=== PATIENT | female | born 2000 | race Caucasian/White ===

== ENCOUNTER 2020-11-10 14:29 | Emergency (ER) | payer BC ==
[~2020-11-10] VITALS: Ht 160 cm; Wt 55.9 kg
[2020-11-10 15:02] LABS: BASOPHILS # (AUTO) 0.1 X10'3 (0-0.2); BASOPHILS % (AUTO) 0.7 % (0-1); EOSINOPHILS # (AUTO) 0.1 X10'3 (0-0.9); EOSINOPHILS % (AUTO) 0.7 % (0-6); HEMOGLOBIN 14.9 g/dl (12.0-16.0); LYMPHOCYTES # (AUTO) 2.1 X10'3 (1.1-4.8); LYMPHOCYTES % (AUTO) 24.5 % (21-51); MEAN CORPUSCULAR HEMOGLOBIN 30.2 PG (27.0-31.0); MEAN CORPUSCULAR HGB CONC 33.9 g/dL (33.0-36.5); MEAN PLATELET VOLUME 9.2 FL (7.4-10.4); MONOCYTES # (AUTO) 0.9 X10'3 (0-0.9); MONOCYTES % (AUTO) 10.2 % (2-12); NEUTROPHILS # (AUTO) 5.5 X10'3 (1.8-7.7); NEUTROPHILS % (AUTO) 63.9 % (42-75); PLATELET COUNT 368 X10'3 (140-440); RED BLOOD COUNT 4.94 X10'6 (4.20-5.60); RED CELL DISTRIBUTION WIDTH 12.4 % (11.5-14.5); WHITE BLOOD COUNT 8.5 X10'3 (4.5-11.0)
[2020-11-10 15:18] LABS: ALANINE AMINOTRANSFERASE 37 U/L (12-78); ALBUMIN 4.6 G/DL (3.4-5.0); ALKALINE PHOSPHATASE 67 IU/L (46-116); ANION GAP 13 (8-16); ASPARTATE AMINO TRANSFERASE 17 U/L (10-37); BILIRUBIN,TOTAL 1.3 MG/DL (0.1-1.0); BLOOD UREA NITROGEN 13 MG/DL (7-18); BUN/CREATININE RATIO 14.4 (6.6-38.0); CALCIUM 9.9 MG/DL (8.5-10.1); CHLORIDE 98 MMOL/L (99-107); GLUCOSE 109 MG/DL (70-104); LIPASE 92 U/L (73-393); SODIUM 138 MMOL/L (135-145); TOTAL CARBON DIOXIDE 26.6 MMOL/L (24-32); TOTAL PROTEIN 9.1 G/DL (6.4-8.2); eGFR 78 ML/MIN
[2020-11-10] MEDS ORDERED: haloperidol lactate 5mg/ml inj IM ONE (15:25)
[2020-11-10] MEDS ORDERED: LORazepam 2 mg/ml vial IV ONE (15:25)
[2020-11-10] MEDS ORDERED: normal saline 1000ML IV soln IV ONE (15:25)
[2020-11-10 15:28] LABS: POTASSIUM 2.9 MMOL/L (3.5-5.1)
[2020-11-10] MEDS ORDERED: potassium Cl 20 mEq SR tablet PO STA (15:34)
[2020-11-10] MEDS ORDERED: magnesium 2GM in 50ml NS 50 ML IV ONE (15:35)
[2020-11-10] MEDS ORDERED: potassium Cl 10 mEq/100mL bag IV ONE (15:35)
[2020-11-10 16:05] LABS: MAGNESIUM 2.3 MG/DL (1.5-2.4)
[2020-11-10 16:16] LABS: URINE HCG NEGATIVE (NEG)
[2020-11-10 16:19] LABS: CLARITY,URINE CLOUDY (Clear); COLOR,URINE YELLOW (Yellow); GLUCOSE, URINE NEGATIVE (Neg); KETONES,URINE >=80 mg/dl (Neg); LEUKOCYTE ESTERASE ,URINE NEGATIVE (Neg); NITRITES, URINE NEGATIVE (Neg); OCCULT BLOOD,URINE MODERATE (Neg); PROTEIN,URINE 30 mg/dl (Neg)
[2020-11-10 16:21] LABS: UA COLLECTION TYPE CLN CATCH MIDSTREAM
[2020-11-10 16:27] LABS: MUCUS STRANDS MANY /LPF (Neg); SQUAMOUS EPITHELIAL CELL,UR MANY /LPF (FEW)
[2020-11-10 16:28] LABS: BACTERIA,URINE 2+ /HPF (Neg); WBC,URINE 0-4 /HPF (0-4)
[2020-11-10] MEDS ORDERED: ONDA4TAB6 PO (16:37)
[2020-11-10 18:00] VITALS: BP 112/67
== END 2020-11-10 17:59 | disposition home or self-care (01) ==
LOC: ER 14:30
DX: F12.188 Cannabis abuse with other cannabis-induced disorder (principal); K59.00 Constipation, unspecified; R10.84 Generalized abdominal pain; Z79.899 Other long term (current) drug therapy
CPT/HCPCS: 36415; 80053; 81001; 81025; 83690; 83735; 85025; 93005; 96365; 96372; 96375; 99284; J1630; J2060; J3475; J3480; J7030; 96361

== ENCOUNTER 2020-11-19 12:50 | Emergency (ER) | payer BC ==
[~2020-11-19] VITALS: Ht 160 cm; Wt 52.8 kg
[~2020-11-19 12:50] MED LIST: ONDA4TAB6 PO
[2020-11-19] MEDS ORDERED: ondansetron/PF 4mg/2ml inj IV ONE (15:40)
[2020-11-19] MEDS ORDERED: normal saline 1000ml 1,000 ML IV ONE (15:40)
[2020-11-19] MEDS ORDERED: morphine 4 MG/ML inj SYRINge IM ONE (16:15)
[2020-11-19] MEDS ORDERED: ondansetron/PF 4mg/2ml inj IM ONE (16:15)
[2020-11-19 16:23] LABS: BASOPHILS # (AUTO) 0.1 X10'3 (0-0.2); BASOPHILS % (AUTO) 1.3 % (0-1); EOSINOPHILS # (AUTO) 0.1 X10'3 (0-0.9); EOSINOPHILS % (AUTO) 0.8 % (0-6); HEMATOCRIT 47.5 % (35.0-45.0); HEMOGLOBIN 16.1 g/dl (12.0-16.0); LYMPHOCYTES # (AUTO) 2.4 X10'3 (1.1-4.8); LYMPHOCYTES % (AUTO) 27.6 % (21-51); MEAN CORPUSCULAR HEMOGLOBIN 29.9 PG (27.0-31.0); MEAN CORPUSCULAR HGB CONC 33.8 g/dL (33.0-36.5); MEAN CORPUSCULAR VOLUME 88.4 FL (78-98); MONOCYTES % (AUTO) 11.4 % (2-12); NEUTROPHILS # (AUTO) 5.1 X10'3 (1.8-7.7); NEUTROPHILS % (AUTO) 58.9 % (42-75); PLATELET COUNT 307 X10'3 (140-440); RED BLOOD COUNT 5.37 X10'6 (4.20-5.60); RED CELL DISTRIBUTION WIDTH 12.3 % (11.5-14.5); WHITE BLOOD COUNT 8.7 X10'3 (4.5-11.0)
[2020-11-19 16:34] LABS: ALANINE AMINOTRANSFERASE 30 U/L (12-78); ALBUMIN 4.8 G/DL (3.4-5.0); ALBUMIN/GLOBULIN RATIO 1.1 (1.1-1.5); ALKALINE PHOSPHATASE 61 IU/L (46-116); ANION GAP 18 (8-16); ASPARTATE AMINO TRANSFERASE 17 U/L (10-37); BILIRUBIN,TOTAL 1.3 MG/DL (0.1-1.0); BLOOD UREA NITROGEN 14 MG/DL (7-18); BUN/CREATININE RATIO 17.1 (6.6-38.0); CALCIUM 10.1 MG/DL (8.5-10.1); CHLORIDE 92 MMOL/L (99-107); CREATININE 0.82 MG/DL (0.40-0.90); GLUCOSE 78 MG/DL (70-104); LIPASE 121 U/L (73-393); SODIUM 135 MMOL/L (135-145); TOTAL CARBON DIOXIDE 25.1 MMOL/L (24-32); TOTAL PROTEIN 9.2 G/DL (6.4-8.2); eGFR 87 ML/MIN
[2020-11-19] MEDS ORDERED: potassium Cl 20 mEq SR tablet PO ONE (16:50)
[2020-11-19] MEDS ORDERED: potassium Cl 10 mEq/100mL bag IV ONE (16:50)
[2020-11-19] MEDS ORDERED: FAMO-128 PO (18:07)
[2020-11-19] MEDS ORDERED: PROC25SU31 RC (18:07)
[2020-11-19] MEDS ORDERED: ONDA4TAB6 PO (18:07)
[2020-11-19 18:19] LABS: CLARITY,URINE CLOUDY (Clear); COLOR,URINE YELLOW (Yellow); GLUCOSE, URINE NEGATIVE (Neg); KETONES,URINE >=80 mg/dl (Neg); LEUKOCYTE ESTERASE ,URINE NEGATIVE (Neg); NITRITES, URINE NEGATIVE (Neg); OCCULT BLOOD,URINE MODERATE (Neg); PH,URINE 5.5 (4.8-8.0); PROTEIN,URINE NEGATIVE (Neg); UROBILINOGEN,URINE 0.2 E.U/dL (0.2-1.0)
[2020-11-19 18:22] LABS: UA COLLECTION TYPE CLN CATCH MIDSTREAM; URINE HCG NEGATIVE (NEG)
[2020-11-19 18:30] LABS: HCG SERUM QL NEGATIVE
[2020-11-19 18:31] LABS: BACTERIA,URINE 2+ /HPF (Neg); SQUAMOUS EPITHELIAL CELL,UR MANY /LPF (FEW)
[2020-11-19 18:32] LABS: WBC,URINE 0-4 /HPF (0-4)
[2020-11-19 19:03] VITALS: BP 116/75
[2020-11-20] MEDS ORDERED: pantoprazole 40mg Tablet.DR PO SCH (07:30)
== END 2020-11-19 19:10 | disposition home or self-care (01) ==
LOC: ER 12:50
DX: R11.2 Nausea with vomiting, unspecified (principal); E87.6 Hypokalemia; Z79.899 Other long term (current) drug therapy
CPT/HCPCS: 36415; 80053; 81001; 81025; 83690; 84703; 85025; 96361; 96372; 96374; 96375; 99284; J2405; J3480; J7030

== ENCOUNTER 2021-02-08 18:40 | Emergency (ER) | payer BC, OTHER ==
[~2021-02-08] VITALS: Ht 160 cm; Wt 57.7 kg
[~2021-02-08 18:40] MED LIST changes: +FAMO-128 PO
[2021-02-08 19:30] LABS: BASOPHILS # (AUTO) 0.1 X10'3 (0-0.2); BASOPHILS % (AUTO) 0.5 % (0-1); EOSINOPHILS % (AUTO) 0.1 % (0-6); HEMOGLOBIN 13.8 g/dl (12.0-16.0); LYMPHOCYTES % (AUTO) 16.1 % (21-51); MEAN CORPUSCULAR HEMOGLOBIN 30.5 PG (27.0-31.0); MEAN CORPUSCULAR HGB CONC 33.6 g/dL (33.0-36.5); MEAN PLATELET VOLUME 8.7 FL (7.4-10.4); MONOCYTES # (AUTO) 0.8 X10'3 (0-0.9); MONOCYTES % (AUTO) 6.8 % (2-12); NEUTROPHILS # (AUTO) 9.4 X10'3 (1.8-7.7); NEUTROPHILS % (AUTO) 76.5 % (42-75); PLATELET COUNT 365 X10'3 (140-440); RED BLOOD COUNT 4.51 X10'6 (4.20-5.60); RED CELL DISTRIBUTION WIDTH 12.5 % (11.5-14.5); WHITE BLOOD COUNT 12.3 X10'3 (4.5-11.0)
[2021-02-08 19:35] LABS: ALANINE AMINOTRANSFERASE 29 U/L (12-78); ALBUMIN 4.4 G/DL (3.4-5.0); ALKALINE PHOSPHATASE 62 IU/L (46-116); ANION GAP 13 (8-16); ASPARTATE AMINO TRANSFERASE 16 U/L (10-37); BILIRUBIN,TOTAL 1.1 MG/DL (0.1-1.0); BLOOD UREA NITROGEN 19 MG/DL (7-18); BUN/CREATININE RATIO 19.6 (6.6-38.0); CALCIUM 9.3 MG/DL (8.5-10.1); CHLORIDE 100 MMOL/L (99-107); CREATININE 0.97 MG/DL (0.40-0.90); GLUCOSE 93 MG/DL (70-104); LIPASE < 50 U/L (73-393); POTASSIUM 3.3 MMOL/L (3.5-5.1); SODIUM 138 MMOL/L (135-145); TOTAL CARBON DIOXIDE 25.1 MMOL/L (24-32); TOTAL PROTEIN 8.8 G/DL (6.4-8.2); eGFR 72 ML/MIN
--- NOTE | 2021-02-08 19:36 | NUR ---
Patient provided with urine specimen cup- instructed for collection of urine specimen. Encouraged to remain NPO while waiting to be seen by provider.
--- NOTE | 2021-02-08 19:54 | NUR ---
ED provider at bedside for patient assessment and discussion of plan of care.
[2021-02-08] MEDS ORDERED: ondansetron/PF 4mg/2ml inj IV ONE (20:00)
[2021-02-08] MEDS ORDERED: normal saline 1000ML IV soln IVB ONE (20:00)
[2021-02-08] MEDS ORDERED: ONDA4TAB6 PO (20:02)
[2021-02-08 20:23] LABS: URINE HCG NEGATIVE (NEG)
[2021-02-08 20:27] LABS: CLARITY,URINE CLEAR (Clear); GLUCOSE, URINE NEGATIVE (Neg); KETONES,URINE >=80 mg/dl (Neg); LEUKOCYTE ESTERASE ,URINE NEGATIVE (Neg); NITRITES, URINE NEGATIVE (Neg); OCCULT BLOOD,URINE MODERATE (Neg); PROTEIN,URINE 30 mg/dl (Neg); UROBILINOGEN,URINE 0.2 E.U/dL (0.2-1.0)
[2021-02-08 20:33] LABS: UA COLLECTION TYPE NON-SPECIFIED
[2021-02-08 20:34] LABS: COLOR,URINE DARK YELLOW (Yellow)
[2021-02-08 20:35] LABS: BACTERIA,URINE FEW /HPF (Neg); HYALINE CASTS 0-3 /LPF (NEGATIVE); MUCUS STRANDS FEW /LPF (Neg); SQUAMOUS EPITHELIAL CELL,UR MODERATE /LPF (FEW); WBC,URINE 0-4 /HPF (0-4)
[2021-02-08 21:11] VITALS: BP 95/47
== END 2021-02-08 21:19 | disposition home or self-care (01) ==
LOC: ER 18:41
DX: R11.2 Nausea with vomiting, unspecified (principal); R10.84 Generalized abdominal pain; F41.9 Anxiety disorder, unspecified; Z79.899 Other long term (current) drug therapy
CPT/HCPCS: 36415; 80053; 81001; 81025; 83690; 85025; 96361; 96374; 99284; J2405; J7030

== ENCOUNTER 2025-03-09 12:53 | Emergency (ER) | payer SELFPAY ==
[~2025-03-09] VITALS: Ht 157.5 cm; Wt 60.5 kg
--- NOTE | 2025-03-09 14:08 | Physician Documentation ---
History of Present Illness ~ Chief Complaint: Vomiting Stated Complaint: "I HAVE BEEN THROWING UP FOR THE PAST 3 DAYS" Time Seen by MD: 14:02 Primary Medical Doctor: none HPI 24-year-old female daily THC smoker has been experiencing nausea vomiting and abdominal cramping she states that hot showers and bath does alleviate her symptoms. Patient is on her menstrual cycle now. No significant medical history Medication Reconciliation Allergies: Coded Allergies: No Known Allergies (Unverified , 11/10/20) Scheduled Famotidine (Pepcid), 1 TAB PO Q12H Ondansetron Hcl (Zofran), 1 TAB PO Q6H Ondansetron Hcl (Zofran), 1 TAB PO Q6H Ondansetron Hcl (Zofran), 4 MG PO Q6H Past Medical History Past Medical History: No Pertinent History Past Surgical History: no surgical history Lives In: Home Review of Systems All Other Systems at this time: Reviewed and Negative Genitourinary: Reports: see HPI Physical Exam Vital Signs: RN Vital Signs have been reviewed: Yes, Temperature: 98.3, Source: Temporal, Heart Rate: 63, Respiratory Rate: 18, BP: 127/79, Pulse Oximetry: 98, Weight: 60.500 Oxygen Flow Rate: 0 General Appearance: alert, WD/WN, no apparent distress EENT: dry mucous membranes Neck: normal inspection Respiratory: lungs clear, normal breath sounds, no respiratory distress Chest: no accessory muscle use Cardiology Exam: regular rate, rhythm Gastrointestinal Mild generalized tenderness no focal tenderness bowel sounds present Neurologic: oriented x4 Psychiatric: normal mood/affect Skin: normal color, warm/dry Progress Results/Orders Results/Orders Orders - DEE DEE GLORIA [employer]ERM[employer] Po Challenge (03/09/25 ) Completed Orders - DEE DEE GLORIA [employer] Ondansetron Inj. (Zofran 4mg/2ml Vial) (03/09/25 14:30) Famotidine/Pf Iv Inj (Pepcid Iv Inj) (03/09/25 14:30) Normal Saline 1000ml (0.9% Sodium Chlori (03/09/25 14:30) Medications Received in ER Medications (Trade) Dose Ordered Sig/Gold Route PRN Reason Start Time Stop Time Status Last Admin Dose Admin (Zofran 4mg/2ml vial) 4 mg ONCE ONCE IV 03/09/25 14:30 03/09/25 14:31 DC 03/09/25 15:03 4 MG (Pepcid IV inj) 20 mg ONCE ONCE IV 03/09/25 14:30 03/09/25 14:31 DC 03/09/25 15:03 20 MG (0.9% sodium chloride (NS) 1000ml IV soln) 1,000 ml ONCE ONCE IVB 03/09/25 14:30 03/09/25 14:31 DC 03/09/25 15:03 1,000 ML Vital Signs 03/09/25 13:16 Temp 98.3 Pulse 63 Resp 18 B/P (MAP) 127/79 Pulse Ox 98 O2 Flow Rate 0 Laboratory Tests Test 03/09/25 13:56 White Blood Count 14.1 H Red Blood Count 4.73 Hemoglobin 14.3 Hematocrit 42.7 Mean Corpuscular Volume 90.3 Mean Corpuscular Hemoglobin 30.3 Mean Corpuscular Hemoglobin Concent 33.6 Red Cell Distribution Width 13.1 Platelet Count 378 Mean Platelet Volume 8.3 Neutrophils (%) (Auto) 71.3 Lymphocytes (%) (Auto) 18.2 L Monocytes (%) (Auto) 10.0 Eosinophils (%) (Auto) 0.2 Basophils (%) (Auto) 0.3 Neutrophils # (Auto) 10.1 H Lymphocytes # (Auto) 2.6 Monocytes # (Auto) 1.4 H Eosinophils # (Auto) 0.0 Basophils # (Auto) 0.0 CBC Comment Sodium Level 140 Potassium Level 3.5 Chloride Level 99 Carbon Dioxide Level 32.7 H Anion Gap 8 Blood Urea Nitrogen 23 H Creatinine 1.11 H Estimated GFR/1.73 m2 59 BUN/Creatinine Ratio 20.7 H Glucose Level 119 H Calcium Level 9.9 Total Bilirubin 1.0 Aspartate Amino Transf (AST/SGOT) 20 Alanine Aminotransferase (ALT/SGPT) 37 Alkaline Phosphatase 70 Total Protein 9.4 H Albumin 4.8 Globulin 4.6 H Albumin/Globulin Ratio 1.0 L Lipase 17 Chemistry Comments Medical Decision Making Findings 24-year-old daily THC user with cyclic vomiting for over 24 hours. Patient can hold some water down but has had difficulty overnight. No blood in her vomit no diarrhea or constipation. Patient states she does get relief in a hot shower. Generalized abdominal pain. Labs reviewed. IV fluids Pepcid and Zofran given with positive response p.o. challenge prior to discharge instructed on reduce/stop THC Diff Dx N/V/D:Considerations: Include: Appendicitis, Bowel obstruction, Dehydration, Electrolyte imbalance, Food poisoning, Gastroenteritis, Hypovolemia, Malnutrition, Other Departure Time of Disposition: 16:09 Disposition: 01 HOME / SELF CARE / HOMELESS Impression: Primary Impression: Cannabis hyperemesis syndrome concurrent with and due to cannabis abuse Additional Impression: Cyclic vomiting syndrome Condition: Stable Discharge Instructions: Nausea and Vomiting, Adult Additional Instructions: Medications as prescribed try to abstain from THC use to help reduce hyperemesis. Focus on staying well hydrated follow up with primary care Referrals: NO PRIMARY CARE PROVIDER (PCP) Prescriptions Capsaicin 60GM Cream* (Zostrix Cream*) 60 Gm Cream.gm. 1 APPLIC TOP Q12H for 30 Days, #60 GM Prov: DEE DEE GLORIA NP 03/09/25 Prochlorperazine Maleate (Compazine) 10 Mg Tablet 1 TAB PO Q6H for 7 Days, #28 TAB 0 Refills Prov: DEE DEE GLORIA NP 03/09/25 ONDANSETRON ODT 4mg tablet (ONDANSETRON ODT) 4 Mg Tab.rapdis 1 TABLET PO Q6H PRN for nausea/vomiting, #16 TABLET Prov: DEE DEE GLORIA NP 03/09/25 Education Educated: Patient Educated regarding: diagnosis, treatment, need for follow up Signature Scribe Signature: No scribe Attestation: The note accurately reflects work and decisions made by me.Dee Dee FRYE 03/09/25 14:08 DEE DEE GLORIA NP Mar 09, 2025 14:08
[2025-03-09 14:10] LABS: MEAN PLATELET VOLUME 8.3 FL (7.4-10.4); RED CELL DISTRIBUTION WIDTH 13.1 % (11.5-14.5)
[2025-03-09 14:27] LABS: CREATININE 1.11 MG/DL (0.40-0.90); TOTAL CARBON DIOXIDE 32.7 MMOL/L (24-32); eCRCL 61 ML/MIN; eGFR 59 ML/MIN
[2025-03-09] MEDS: normal saline 1000ML IV soln IVB ONE (15:03)
[2025-03-09] MEDS: ondansetron/PF 4mg/2ml inj IV ONE (15:03)
[2025-03-09] MEDS: famotidine/PF 10 mg/ml inj IV ONE (15:03)
[2025-03-09] MEDS ORDERED: PROC-8 PO (16:09)
[2025-03-09] MEDS ORDERED: ONDA-243 PO (16:09)
[2025-03-09] MEDS ORDERED: CAPS60CR6 TOP (16:09)
[2025-03-09 17:12] VITALS: BP 117/72; PULSE 71; RESP 16; TEMP 98.3; O2SAT 98
== END 2025-03-09 17:13 | disposition home or self-care (01) ==
LOC: ER 12:53
DX: F12.10 Cannabis abuse, uncomplicated (principal); R11.15 Cyclical vomiting syndrome unrelated to migraine; R10.9 Unspecified abdominal pain
CPT/HCPCS: 36415; 80053; 83690; 85025; 96361; 96374; 96375; 99284; J2405; J3490; J7030

== ENCOUNTER 2025-03-18 07:04 | Emergency (ER) | payer SELFPAY ==
[~2025-03-18] VITALS: Ht 157.5 cm; Wt 59.4 kg
[~2025-03-18 07:04] MED LIST changes: +CAPS60CR6 TOP; +ONDA-243 PO; +PROC-8 PO
[2025-03-18 07:53] LABS: MEAN PLATELET VOLUME 9.3 FL (7.4-10.4); RED CELL DISTRIBUTION WIDTH 12.0 % (11.5-14.5)
[2025-03-18 07:55] LABS: LEUKOCYTE ESTERASE ,URINE NEGATIVE (Neg); NITRITES, URINE NEGATIVE (Neg); OCCULT BLOOD,URINE SMALL (Neg)
[2025-03-18 07:58] LABS: URINE HCG NEGATIVE (NEG)
[2025-03-18 08:00] LABS: UA COLLECTION TYPE CLN CATCH MIDSTREAM
[2025-03-18 08:01] LABS: AMORPHOUS PHOSPHATES 2+
[2025-03-18 08:02] LABS: MUCUS STRANDS NONE SEEN /LPF (Neg); SQUAMOUS EPITHELIAL CELL,UR MANY /LPF (FEW)
[2025-03-18 08:09] LABS: CREATININE 1.09 MG/DL (0.40-0.90); TOTAL CARBON DIOXIDE 31.1 MMOL/L (24-32); eCRCL 62 ML/MIN; eGFR 61 ML/MIN
[2025-03-18] MEDS: OLANZapine **IM** 10 mg inj. IM ONE (08:21)
--- NOTE | 2025-03-18 09:11 | Physician Documentation ---
History of Present Illness Chief Complaint: Abdominal Pain w/vomiting Stated Complaint: VOMITING Time Seen by MD: 07:37 Primary Medical Doctor: none Mode of Arrival: Ambulatory HPI h/o daily thc use p/w 2 weeks of vomiting. was seen here initially and has persistence of vomiting. relieved with hot showers. has refrained from thc use since then. mild cramping LUQ pain which has resolved. Medication Reconciliation Allergies: Coded Allergies: No Known Allergies (Unverified , 03/18/25) Scheduled Capsaicin 60GM Cream* (Zostrix Cream*), 1 APPLIC TOP Q12H Famotidine (Pepcid), 1 TAB PO Q12H Ondansetron Hcl (Zofran), 1 TAB PO Q6H Ondansetron Hcl (Zofran), 1 TAB PO Q6H Ondansetron Hcl (Zofran), 4 MG PO Q6H Prochlorperazine Maleate (Compazine), 1 TAB PO Q6H Scheduled PRN ONDANSETRON ODT 4mg tablet (Ondansetron Odt), 1 TABLET PO Q6H PRN for nausea/vomiting Past Medical History Past Medical History: No Pertinent History Past Surgical History: no surgical history Lives In: Home Review of Systems All Other Systems at this time: Reviewed and Negative Constitutional: Denies: fever Cardiovascular: Denies: chest pain Gastrointestinal: Reports: abdominal pain, nausea, vomiting; Denies: abdomen distended Physical Exam Vital Signs: Temperature: 98.4, Source: Temporal, Heart Rate: 82, Respiratory Rate: 24, BP: 123/81, Pulse Oximetry: 98, Weight: 59.400 Oxygen Flow Rate: 0 Physical Exam well appearing no distress moist mucous membranes pulm ctab cardiac no murmur abdomen soft non tender. awake alert oriented Progress Results/Orders Reviewed/noted all lab results: Yes Results/Orders Completed Orders - LIMA SCHNEIDER MD Hcg, Ur Ql (03/18/25 07:13) Cbc/Diff (03/18/25 07:13) Lipase (03/18/25 07:13) CMP (03/18/25 07:13) Ua W/Microscopic, Cult If Ind (03/18/25 07:30) Olanzapine Im (Zyprexa I.M. Im On (03/18/25 08:10) Pantoprazole 40mg Iv (Protonix 40mg Iv) (03/18/25 08:10) Medications Received in ER Medications (Trade) Dose Ordered Sig/Gold Route PRN Reason Start Time Stop Time Status Last Admin Dose Admin (ZyPREXA I.M. IM ONLY) 2.5 mg ONCE ONCE IM 03/18/25 08:10 03/18/25 08:11 DC 03/18/25 08:21 2.5 MG (Protonix 40mg IV) 40 mg ONCE ONCE IV 03/18/25 08:10 03/18/25 08:11 DC 03/18/25 08:24 40 MG Vital Signs 03/18/25 03/18/25 03/18/25 07:07 07:24 08:33 Temp 98.4 Pulse 97 82 Resp 18 24 B/P (MAP) 133/90 123/81 (95) Pulse Ox 97 98 O2 Flow Rate 0 0 Laboratory Tests Test 03/18/25 07:30 03/18/25 07:36 Urine Specimen Description Cln catch midstream Urine Color Yellow Urine Clarity Cloudy Urine pH 8.0 Urine Specific [place] 1.015 Urine Protein 30 H Urine Glucose (UA) Negative Urine Ketones Negative Urine Occult Blood Small Urine Nitrite Negative Urine Bilirubin Negative Urine Urobilinogen 1.0 Urine Leukocyte Esterase Negative Urine RBC 3-10 Urine WBC 0-4 Urine Squamous Epithelial Cells Many Urine Amorphous Phosphates 2+ Urine Bacteria 3+ Urine Mucus None seen Urine Culture Indicated Not ind Volume Urine Centrifuged 10 ml Urine HCG, Qualitative Negative Urine Comment White Blood Count 7.6 Red Blood Count 4.37 Hemoglobin 13.2 Hematocrit 39.2 Mean Corpuscular Volume 89.8 Mean Corpuscular Hemoglobin 30.2 Mean Corpuscular Hemoglobin Concent 33.7 Red Cell Distribution Width 12.0 Platelet Count 313 Mean Platelet Volume 9.3 Neutrophils (%) (Auto) 63.6 Lymphocytes (%) (Auto) 26.1 Monocytes (%) (Auto) 8.6 Eosinophils (%) (Auto) 0.9 Basophils (%) (Auto) 0.8 Neutrophils # (Auto) 4.8 Lymphocytes # (Auto) 2.0 Monocytes # (Auto) 0.6 Eosinophils # (Auto) 0.1 Basophils # (Auto) 0.1 CBC Comment Sodium Level 137 Potassium Level 3.1 L Chloride Level 97 L Carbon Dioxide Level 31.1 Anion Gap 9 Blood Urea Nitrogen 9 Creatinine 1.09 H Estimated GFR/1.73 m2 61 BUN/Creatinine Ratio 8.3 L Glucose Level 151 H Calcium Level 9.1 Total Bilirubin 0.9 Aspartate Amino Transf (AST/SGOT) 22 Alanine Aminotransferase (ALT/SGPT) 97 H Alkaline Phosphatase 63 Total Protein 7.4 Albumin 3.8 Globulin 3.6 Albumin/Globulin Ratio 1.1 Lipase 21 Chemistry Comments Medical Decision Making Differential Dx:Considerations: Include: -Complete, Bowel obstruction, Constipation Departure Disposition: HOME / SELF CARE / HOMELESS Impression: Primary Impression: Cannabis hyperemesis syndrome concurrent with and due to cannabis abuse Additional Impression Text Cyclic vomiter with benign labs and exam. considered CT abd/pelvis however non tender on exam. Normal vitals resolved with olanzapine. Additional Instructions: Continue to stop using THC, this will get better in the next few weeks. You should also try using capsaicin cream which is available over the counter (find in the arthritis cream section or ask the pharmacist) Return for fever or worsening symptoms. Referrals: NO PRIMARY CARE PROVIDER (PCP) Prescriptions Prochlorperazine Maleate (Compazine) 10 Mg Tablet 1 TAB PO Q6H PRN for nausea/vomiting for 30 Days, #30 TAB 0 Refills Prov: LIMA SCHNEIDER MD 03/18/25 Promethazine Hcl (Promethegan) 25 Mg Supp.rect 25 MG RC Q6H PRN N/V PRN for nausea/vomiting for 10 Days, #10 SUPP Prov: LIMA SCHNEIDER MD 03/18/25 Signature Scribe Signature: na Attestation: LIMA Dover MD Mar 18, 2025 09:11
[2025-03-18] MEDS ORDERED: PROC-8 PO (09:17)
[2025-03-18] MEDS ORDERED: PROM25SU9 RC (09:17)
[2025-03-18 09:36] VITALS: BP 126/86; PULSE 83; RESP 15; TEMP 98.4; O2SAT 99
== END 2025-03-18 09:40 | disposition home or self-care (01) ==
LOC: ER 07:05
DX: F12.10 Cannabis abuse, uncomplicated (principal); Z79.899 Other long term (current) drug therapy
CPT/HCPCS: 36415; 80053; 81001; 81025; 83690; 85025; 96372; 96374; 99284; J2470; J3490